=== PATIENT | male | born 1985 | race Caucasian/White ===

== ENCOUNTER → 2020-12-28 | Outpatient (CLI) | payer OTHER ==
--- NOTE | 2020-12-28 18:40 | CONS ---
CONSULTATION DATE OF SERVICE: 12/28/2020 This 35-year-old gentleman has been [facility] for possible obstructive sleep apnea-hypopnea syndrome. HISTORY OF PRESENT ILLNESS/SLEEP-WAKE EVALUATION: Patient's usual sleep schedule on weekdays is from 10 p.m. to 4:30 a.m. and on weekend from 11 p.m. until 8 a.m. No problems with falling asleep. No TV in bedroom. He usually sleeps on the side position. According to his , he has loud snoring, witnessed episodes of stopped breathing during sleep. He also wakes up from sleep with gasping for air and sweating. Usually no episodes of nocturia. During the day, patient feels sleepiness. Napier Sleepiness Scale is in extremely high range at 20. Positive history of episodes of irritability. PAST MEDICAL HISTORY: Positive for hyperlipidemia, episodes of hypertension documented in the office. SOCIAL HISTORY: Positive for smoking vapes. Alcohol consumption occasional. PAST SURGICAL HISTORY: None. MEDICATIONS: Vitamin D2, phentermine 37.5 mg once a day. FAMILY HISTORY: Positive for hypertension, stroke, diabetes, arthritis. REVIEW OF SYSTEMS: Loud snoring, significant excessive daytime sleepiness. No fevers. No double vision. No recent chest pain. No shortness of breath. No abdominal pain. No bleeding episodes. No blood in the urine. No seizure episodes. PHYSICAL EXAMINATION: GENERAL: Pleasant gentleman without distress. VITAL SIGNS: BP 102/68, HR 71, RR 15, height 5 feet 7-1/2 inches, weight 217 pounds, body mass index 33.4, temperature 97.3, oxygen saturation at room air 99%. HEENT: PERRLA, EOMI, evaluation of oropharynx showed tongue protrudes midline. Extremely low position of soft palate; Mallampati IV. NECK: Supple, no JVD. Thyroid is not palpable. Neck measures 17 inches in circumference. LUNGS: Clear to percussion and to auscultation. Good air exchange. No wheezing or rhonchi. HEART: S1, S2 regular. No murmurs, gallops, or rubs. ABDOMEN: Soft and nontender. Bowel sounds are present. No organomegaly appreciated. EXTREMITIES: No clubbing or cyanosis. [employer]: Awake, alert, and oriented X3. Cranial nerves 2 to 7 intact. There is no fasciculation or atrophy. noted. No focal deficits observed. IMPRESSION: 1. Loud snoring, witnessed episodes of stopped breathing during sleep, extremely low position of soft palate, Mallampati IV, wide neck at 17 inches in circumference, significant sleepiness by Napier Sleepiness Scale; obstructive sleep apnea- hypopnea syndrome. 2. Very high Napier Sleepiness Scale of 20, dictating necessity to include hypersomnia and narcolepsy in differential diagnosis. No history of cataplexy, sleep paralysis or hypnagogic hallucinations. 3. Mild obesity. 4. Hyperlipidemia. 5. History of increasing blood pressure in the office. PLAN: 1. Polysomnography for evaluation of patient's breathing during sleep. 2. CPAP/BiPAP titration if sleep study confirms obstructive sleep apnea-hypopnea syndrome. 3. Preferable position during sleep on the side. 4. No driving if patient feels any sleepiness. 5. I will see patient for follow up visit to explain results of testing and following plan. Thank you very much for referring this patient for consultation. Sincerely, Soy Pro MD, PhD, FAASM Diplomat of [employer] Sleep Medicine [employer] of [employer] [facility] [place] MMODL / JUSTINN: [id number] /
== END | disposition home or self-care (01) ==
LOC: SLEEP 13:36
PROVIDERS: ATTEND Internal Medicine
DX: G47.33 Obstructive sleep apnea (adult) (pediatric) (principal); E66.9 Obesity, unspecified; E78.5 Hyperlipidemia, unspecified; Z68.33 Body mass index [BMI] 33.0-33.9, adult
CPT/HCPCS: 99202